=== PATIENT | female | born 1970 | race Hispanic/Latino ===

== ENCOUNTER → 2017-07-02 | Outpatient (CLI) | payer OTHER | END | disposition home or self-care (01) | LOC: RAH 08:54 | PROVIDERS: ATTEND Family Medicine | DX: K76.0 Fatty (change of) liver, not elsewhere classified (principal); B27.00 Gammaherpesviral mononucleosis without complication; R53.83 Other fatigue; R01.1 Cardiac murmur, unspecified; R82.90 Unspecified abnormal findings in urine | CPT/HCPCS: 76700; 87088; 93306 ==